=== PATIENT | female | born 2000 | race Caucasian/White ===

== ENCOUNTER 2021-06-25 11:29 | Emergency (ER) | payer OTHER ==
[2021-06-25] MEDS ORDERED: LORAZEPAM 0.5 MG TABLET ONE (11:41)
[2021-06-25] MEDS ORDERED: IBUPROFEN 600 MG TABLET ONE (11:42)
[2021-06-25] MEDS ORDERED: ONDANSETRON ODT 4 MG TAB.RAPDIS ONE (11:42)
[2021-06-25] MEDS ORDERED: ONDANSETRON ODT 4 MG TAB.RAPDIS SL ONE (11:45)
[2021-06-25] MEDS ORDERED: IBUPROFEN 600 MG TABLET PO ONE (11:45)
[2021-06-25] MEDS ORDERED: LORAZEPAM 0.5 MG TABLET PO ONE (11:45)
[2021-06-25] MEDS ORDERED: IV NORMAL SALINE 1000 ML BAG IV ONE (12:30)
[2021-06-25] MEDS ORDERED: ACETAMINOPHEN 325 MG TABLET PO ONE (12:30)
[2021-06-25] MEDS ORDERED: ACETAMINOPHEN 325 MG TABLET ONE (12:38)
[2021-06-25 13:19] LABS: HEMATOCRIT 38.4 % (31.2-41.9); MEAN CORPUSCULAR HEMOGLOBIN 25.6 uug (24.7-32.8); MEAN CORPUSCULAR VOLUME 76.1 fL (75.5-95.3); PLATELET COUNT (AUTO) 308 K/uL (179-408)
[2021-06-25 13:30] LABS: ALANINE AMINOTRANSFERASE 26 U/L (14-59); ALKALINE PHOSPHATASE 49 U/L (50-136); ASPARTATE AMINOTRANSFERASE 8 U/L (15-37); BILIRUBIN,DIRECT < 0.1 mg/dL (0.0-0.2); BILIRUBIN,TOTAL 0.2 mg/dL (0.2-1.0); CARBON DIOXIDE 24 mmol/L (21-32); CHLORIDE 99 mmol/L (98-107); CREATININE 0.7 mg/dL (0.6-1.3); GLUCOSE 117 mg/dL (74-106); LIPASE 57 U/L (73-393); POTASSIUM 3.7 mmol/L (3.5-5.1); TOTAL PROTEIN, SERUM 8.1 g/dL (6.4-8.2); UREA NITROGEN, BLOOD 14 mg/dL (7-18)
[2021-06-25 13:38] LABS: *BILIRUBIN,URIN NEGATIVE (NEGATIVE); *BLOOD, URINE 3+ (NEGATIVE); *CLARITY,URINE CLOUDY (CLEAR); *COLOR,URINE AMBER (YELLOW); *KETONES,URINE NEGATIVE (NEGATIVE); *UROBILINOGEN,URINE 0.2 E.U./dl (NORMAL); LEUKOCYTE ESTERASE ,URINE TRACE (NEGATIVE); NITRITE, URINE NEGATIVE (NEGATIVE); PH,URINE 5.5 (5.0-8.0); UGLUCOSE NEGATIVE (NEGATIVE)
[2021-06-25 13:40] LABS: *URINE HCG, QUAL NEGATIVE (NEGATIVE)
[2021-06-25 13:50] LABS: BACTERIA,URINE FEW /HPF (NONE SEEN); RBC,URINE TNTC /HPF (0-3); SQUAMOUS EPITHELIAL CELL,UR FEW /HPF (NONE SEEN)
--- NOTE | 2021-06-25 13:55 | NUR ---
Pain now down to 2/10. No nausea present.
--- NOTE | 2021-06-25 15:00 | NUR ---
Removed IV intact, site okay, bandaged. Gave pt RX and d/c instructions, pt verbalized understanding.
== END 2021-06-25 15:10 | disposition home or self-care (01) ==
LOC: ER 11:29
DX: R10.31 Right lower quadrant pain (principal); D72.829 Elevated white blood cell count, unspecified; R11.10 Vomiting, unspecified
CPT/HCPCS: 36415; 76856; 80048; 80076; 81001; 83690; 84703; 85025; 87086; 93005; 96360; 99285; J7040; A4663; Q0162